=== PATIENT | male | born 1960 | race Caucasian/White ===

== ENCOUNTER → 2020-03-23 | Outpatient (CLI) | payer MEDICARE, OTHER ==
[~2020-03-23] MED LIST: FLORASTOR250 MG PO; K-DUR TAB 10 M10 MEQ PO; K-TAB ER20 MEQ PO; LASIX20 MG PO; ZOFRAN4 MG PO
== END ==
LOC: KOH-I 12:58
DX: M47.896 Other spondylosis, lumbar region (principal); M51.36 Other intervertebral disc degeneration, lumbar region; M48.061 Spinal stenosis, lumbar region without neurogenic claudication; M48.07 Spinal stenosis, lumbosacral region; M51.26 Other intervertebral disc displacement, lumbar region; M47.816 Spondylosis without myelopathy or radiculopathy, lumbar region; M47.817 Spondylosis without myelopathy or radiculopathy, lumbosacral region; M51.27 Other intervertebral disc displacement, lumbosacral region
CPT/HCPCS: 72148

== ENCOUNTER 2020-08-12 08:19 | Emergency (ER) | payer MEDICARE, OTHER ==
[2020-08-12 08:51] LABS: HEMOGLOBIN 15.6 gm/dl (14.0-17.5); RED BLOOD COUNT 5.31 M/UL (4.20-5.50); WHITE BLOOD COUNT 10.8 K/UL (4.5-11.0)
[2020-08-12 09:17] LABS: BUN/CREATININE RATIO 21 (0-10)
[2020-08-12] MEDS ORDERED: K-DUR TAB 10 M10 MEQ PO (14:03)
[2020-08-12] MEDS ORDERED: LASIX20 MG PO (14:03)
== END 2020-08-12 14:53 | disposition home or self-care (01) ==
LOC: ER1 08:19
PROVIDERS: Emergency Medicine
DX: K74.60 Unspecified cirrhosis of liver (principal); R18.8 Other ascites; Z20.822 Contact with and (suspected) exposure to COVID-19
CPT/HCPCS: 0240U; 71045; 80053; 82550; 82553; 83874; 83880; 84484; 85025; 93005; 99285; Q9967

== ENCOUNTER → 2020-09-06 | Outpatient (CLI) | payer MEDICARE, OTHER | LOC: HEART 5 09:02 | DX: J44.9 Chronic obstructive pulmonary disease, unspecified (principal); R06.02 Shortness of breath; F17.210 Nicotine dependence, cigarettes, uncomplicated | CPT/HCPCS: 94010 ==

== ENCOUNTER 2020-09-14 11:40 | Emergency (ER) | payer MEDICARE, OTHER ==
[~2020-09-14 11:40] MED LIST changes: -FLORASTOR250 MG PO; -K-TAB ER20 MEQ PO; -ZOFRAN4 MG PO
[2020-09-14 13:15] LABS: HEMOGLOBIN 13.5 gm/dl (14.0-17.5); RED BLOOD COUNT 4.68 M/UL (4.20-5.50); WHITE BLOOD COUNT 13.6 K/UL (4.5-11.0)
[2020-09-14 13:49] LABS: BUN/CREATININE RATIO 22 (0-10)
[2020-09-14] MEDS ORDERED: ZOFRAN4 MG PO (16:17)
[2020-09-14] MEDS ORDERED: FLORASTOR250 MG PO (16:17)
[2020-09-14] MEDS ORDERED: LASIX20 MG PO (16:17)
[2020-09-14] MEDS ORDERED: K-TAB ER20 MEQ PO (16:17)
== END 2020-09-14 16:41 | disposition home or self-care (01) ==
LOC: ER1 11:40
PROVIDERS: Physician Assistant Medical
DX: K74.60 Unspecified cirrhosis of liver (principal); R18.8 Other ascites; R93.2 Abnormal findings on diagnostic imaging of liver and biliary tract; E11.9 Type 2 diabetes mellitus without complications; I10 Essential (primary) hypertension; F17.210 Nicotine dependence, cigarettes, uncomplicated; Z90.49 Acquired absence of other specified parts of digestive tract; Z88.0 Allergy status to penicillin
CPT/HCPCS: 71045; 80053; 82140; 82550; 82553; 83605; 83874; 83880; 84484; 85025; 85610; 87040; 93005; 96374; 99284; J1940; Q9967

== ENCOUNTER → 2020-09-29 | Outpatient (CLI) | payer MEDICARE, OTHER ==
[~2020-09-29] VITALS: Ht 182.9 cm; Wt 128.8 kg
[~2020-09-29] MED LIST changes: +FLORASTOR250 MG PO; +K-TAB ER20 MEQ PO; +ZOFRAN4 MG PO
[2020-09-29 11:43] LABS: BUN/CREATININE RATIO 23 (0-10)
[2020-09-30 08:38] LABS: ALPHA-1-ANTITRYPSIN, SERUM 329 mg/dL (101-187)
[2020-09-30 10:51] LABS: HBSAG SCREEN Negative (Negative); HEP A AB, IGM Negative (Negative); HEP B CORE AB, IGM Negative (Negative); HEP C VIRUS AB <0.1 (0.0-0.9)
[2020-09-30 16:20] LABS: MITOCHONDRIAL (M2) ANTIBODY <20.0 Units (0.0-20.0)
== END ==
LOC: OPSV 09-28 10:00
PROVIDERS: Internal Medicine Gastroenterology
PROC: 0W9G3ZZ Drainage of Peritoneal Cavity, Percutaneous Approach (ICD-10-PCS; principal; 2020-09-29)
DX: K74.60 Unspecified cirrhosis of liver (principal); R18.8 Other ascites; Z88.0 Allergy status to penicillin; Z88.5 Allergy status to narcotic agent; Z88.6 Allergy status to analgesic agent
CPT/HCPCS: 36415; 80048; 80074; 80076; 82103; 82105; 82728; 83540; 83550; 86038; 96365; P9047

== ENCOUNTER → 2020-10-06 | Outpatient (CLI) | payer MEDICARE, OTHER ==
[~2020-10-06] VITALS: Ht 182.9 cm; Wt 128.8 kg
[2020-10-06 12:46] LABS: BUN/CREATININE RATIO 23 (0-10)
== END ==
LOC: OPSV 09:42
PROVIDERS: Internal Medicine Gastroenterology
PROC: 0W9G3ZZ Drainage of Peritoneal Cavity, Percutaneous Approach (ICD-10-PCS; principal; 2020-10-06)
DX: K74.60 Unspecified cirrhosis of liver (principal); R18.8 Other ascites; K75.81 Nonalcoholic steatohepatitis (NASH); Z88.0 Allergy status to penicillin; Z88.5 Allergy status to narcotic agent; Z88.6 Allergy status to analgesic agent
CPT/HCPCS: 36415; 80048; 96365; C1729; P9047

== ENCOUNTER → 2020-10-13 | Outpatient (CLI) | payer MEDICARE, OTHER ==
[~2020-10-13] VITALS: Ht 182.9 cm; Wt 128.8 kg
[2020-10-13 11:24] LABS: BUN/CREATININE RATIO 38 (0-10)
== END ==
LOC: OPSV 10:00
PROVIDERS: Internal Medicine Gastroenterology
PROC: 0W9G3ZX Drainage of Peritoneal Cavity, Percutaneous Approach, Diagnostic (ICD-10-PCS; principal; 2020-10-13)
DX: K74.60 Unspecified cirrhosis of liver (principal); R18.8 Other ascites; K75.81 Nonalcoholic steatohepatitis (NASH); Z79.4 Long term (current) use of insulin; Z79.899 Other long term (current) drug therapy; Z88.0 Allergy status to penicillin; Z88.5 Allergy status to narcotic agent; Z88.6 Allergy status to analgesic agent
CPT/HCPCS: 36415; 80048; 96365; C1729; P9047

== ENCOUNTER → 2020-10-20 | Outpatient (CLI) | payer MEDICARE, OTHER ==
[~2020-10-20] VITALS: Ht 182.9 cm; Wt 128.8 kg
[2020-10-20 10:52] LABS: BUN/CREATININE RATIO 31 (0-10)
== END ==
LOC: OPSV 09:29
PROVIDERS: Internal Medicine Gastroenterology
DX: R18.8 Other ascites (principal)
CPT/HCPCS: 36415; 80048

== ENCOUNTER → 2020-10-23 | Outpatient (CLI) | payer MEDICARE, OTHER ==
[~2020-10-23] VITALS: Ht 182.9 cm; Wt 128.8 kg
== END ==
LOC: OPSV 10:00
PROC: 0W9G3ZZ Drainage of Peritoneal Cavity, Percutaneous Approach (ICD-10-PCS; principal; 2020-10-23)
DX: K74.60 Unspecified cirrhosis of liver (principal); R18.8 Other ascites; Z88.0 Allergy status to penicillin; Z88.5 Allergy status to narcotic agent; Z88.6 Allergy status to analgesic agent
CPT/HCPCS: 96365; C1729; P9047